=== PATIENT | female | born 1965 | race Caucasian/White ===

== ENCOUNTER → 2018-07-19 12:04 | Outpatient (CLI) | payer OTHER, SELFPAY ==
--- NOTE | 2018-07-19 12:13 | US_ITS ---
US thyroid, FNA thyroid w ultrasound guidance, US organ site (thyroid) Ordering Physician: Soumya Duffy Patient Age: 53 years: Female HISTORY: ITS.REASON: Left thyroid NODULE Long-standing isthmus nodule towards left.. Patient been off aspirin for one week TECHNIQUE: Initial ultrasound of thyroid performed. Subsequent ultrasound-guided thyroid nodule fine needle aspiration x4 performed by Dr. Bray FINDINGS AND PROCEDURE: ULTRASOUND thyroid Nodule is identified left isthmus of thyroid . It measures up to 1.8 x 1.15 cm maximum dimension. Hypervascular nodule Otherwise thyroid gland only briefly surveyed .These images also determined the best approach for access to perform aspiration biopsy of this nodule. Scanning by Dr. Bray ULTRASOUND-GUIDED FNA BIOPSY thyroid patient received Xanax 1 mg and Lortab5 Prior to the procedure for comfort and mild sedation. Following sterile preparation as well as local skin, and minimal deeper placement of Xylocaine anesthetic the FNA procedure was performed.. Under ultrasound guidance the FNA biopsy needle, was advanced to the nodule and positioned. Needle tip was observed passing into the nodule on each of the 4 multipleFNA biopsies passes. Slightly different areas sampled After confirming adequate material FNA specimen material obtained and subsequently submitted to cytopathology. Patient tolerated procedure well. IMPRESSION: 1. 1.8 cm x 1.1 cm thyroid nodule left isthmus. Relatively Hypervascular appearing nodule 2. FNA thyroid biopsy performed. & Appears that Adequate material obtained with this 4 FNA passes utilized with this procedure 3. CYTOPATHOLOGY REPORT.: Atypical Follicular lesion of undetermined significance
== END ==
PROVIDERS: Family Provider Family Medicine; PCP Family Medicine; Visit Provider Family Medicine
DX: E04.1 Nontoxic single thyroid nodule (principal)
CPT/HCPCS: 10022; 76536

== ENCOUNTER → 2019-03-15 20:14 | Outpatient (CLI) | payer OTHER, SELFPAY | PROVIDERS: PCP Family Medicine; Visit Provider Specialist | DX: G47.30 Sleep apnea, unspecified (principal); R06.83 Snoring; R06.81 Apnea, not elsewhere classified; R53.83 Other fatigue; R25.2 Cramp and spasm; G43.919 Migraine, unspecified, intractable, without status migrainosus; R51 Headache | CPT/HCPCS: 95810 ==

== ENCOUNTER → 2020-12-15 18:47 | Outpatient (CLI) | payer OTHER, SELFPAY ==
[2020-12-15 19:20] LABS: Basophils # 0.1 K/mm3 (0-0.2); Basophils % 1.3 % (0.1-2.0); Eosinophils # 0.2 K/mm3 (0.0-0.4); Eosinophils % 2.1 % (0.1-12.0); Hemoglobin 14.9 g/dL (12.2-16.2); Lymphocytes # 1.9 K/mm3 (0.7-4.5); Lymphocytes % 23.3 % (10-50); Mean Corpuscular Hemoglobin 31.2 pg (27.0-31.2); Mean Corpuscular Volume 91.7 fl (81-99); Mean Platelet Volume 10.8 fl (7.4-10.4); Monocytes # 0.3 K/mm3 (0.1-1.0); Monocytes % 3.3 % (1.7-9.3); Neutrophils # 5.8 K/mm3 (1.8-7.8); Neutrophils % 69.9 % (37.0-80.0); Platelet Count 319 K/mm3 (142-424); Red Blood Count 4.79 M/mm3 (4.20-5.40); Red Cell Distribution Width 13.6 % (11.5-17.5); White Blood Count 8.2 K/mm3 (4.8-10.8)
[2020-12-15 19:42] LABS: Alanine Aminotransferase 23 U/L (12-78); Albumin Level 4.8 g/dl (3.5-5.0); Albumin/Globulin Ratio 1.6 (1.1-1.8); Alkaline Phosphatase 64 U/L (38-126); Anion Gap 14.1 mEq/L (5-15); Aspartate Amino Transferase 32 U/L (14-36); Bilirubin,Total 0.9 mg/dl (0.2-1.3); Blood Urea Nitrogen 15 mg/dl (7-17); Calcium 10.4 mg/dl (8.4-10.2); Carbon Dioxide 31 mmol/L (22.0-30.0); Chloride 101 mmol/L (98-107); Chol/HDL Ratio 3.3 (1-3.5); Cholesterol 189 mg/dl (140-200); Estimated Glomerular Filt Rate 51 ml/min (>60); GFR (African American) 62 ML/MIN (>60); Glucose 91 mg/dl (74-100); HDL Cholesterol 58 mg/dl (40-60); Potassium 4.1 mmoL/L (3.5-5.1); Sodium 142 mmol/L (136-145); Total Protein,Serum 7.8 g/dl (6.3-8.2); Triglycerides 136 mg/dl (30-150); VLDL Cholesterol 27 mg/dL (0-40)
[2020-12-15 19:53] LABS: Direct LDL Cholesterol 95.31 mg/dL (100-129)
[2020-12-15 19:59] LABS: 25-OH Vitamin D, Total 38.4 ng/mL (30-100)
[2020-12-15 20:01] LABS: T4 (Thyroxine) 11.9 ug/dl (5.53-11.0)
[2020-12-15 20:13] LABS: Thyroid Stimulating Hormone 0.77 uIU/mL (0.465-4.68)
== END ==
PROVIDERS: Visit Provider Emergency Medicine
DX: R53.83 Other fatigue (principal); E05.90 Thyrotoxicosis, unspecified without thyrotoxic crisis or storm
CPT/HCPCS: 80053; 80061; 82306; 84436; 84443; 85025

== ENCOUNTER 2021-01-22 22:38 | Emergency (ER) | payer OTHER, SELFPAY ==
[2021-01-22 22:39] VITALS: BP 169/69; PULSE 73; RESP 16; TEMP 37.1; O2SAT 100; BMI 31.9
[2021-01-22 23:04] VITALS: BMI 31.9
[2021-01-22 23:20] LABS: Potassium 3.6 mmoL/L (3.5-5.1); Sodium 142 mmol/L (136-145)
[2021-01-22 23:21] LABS: Basophils # 0.2 K/mm3 (0-0.2); Basophils % 1.9 % (0.1-2.0); Eosinophils # 0.4 K/mm3 (0.0-0.4); Eosinophils % 5.5 % (0.1-12.0); Hemoglobin 13.4 g/dL (12.2-16.2); Lymphocytes # 2.6 K/mm3 (0.7-4.5); Lymphocytes % 33.8 % (10-50); Mean Corpuscular HGB Conc 31.3 g/dL (31.8-35.4); Mean Corpuscular Hemoglobin 29.8 pg (27.0-31.2); Mean Corpuscular Volume 95.4 fl (81-99); Mean Platelet Volume 9.4 fl (7.4-10.4); Monocytes # 0.4 K/mm3 (0.1-1.0); Monocytes % 5.1 % (1.7-9.3); Neutrophils # 4.2 K/mm3 (1.8-7.8); Neutrophils % 53.8 % (37.0-80.0); Platelet Count 274 K/mm3 (142-424); Red Cell Distribution Width 13.5 % (11.5-17.5); White Blood Count 7.8 K/mm3 (4.8-10.8)
[2021-01-22 23:22] LABS: Blood Urea Nitrogen 18 mg/dl (7-17); Creatinine Clearance Estimated 69 mL/min (50-200); Estimated Glomerular Filt Rate 46 ml/min (>60); GFR (African American) 56 ML/MIN (>60)
[2021-01-22 23:23] LABS: Alanine Aminotransferase 29 U/L (12-78); Albumin Level 4.6 g/dl (3.5-5.0); Alkaline Phosphatase 59 U/L (38-126); Aspartate Amino Transferase 44 U/L (14-36); Bilirubin,Direct 0.1 mg/dl (0.0-0.4); Bilirubin,Indirect 0.8 mg/dL (0.0-0.9); Bilirubin,Total 0.9 mg/dl (0.2-1.3); Bilirubin,Unconjugated 0.8 mg/dL (0.0-1.1); Calcium 9.8 mg/dl (8.4-10.2); Carbon Dioxide 32 mmol/L (22.0-30.0); Glucose 111 mg/dl (74-100); Total Protein,Serum 7.9 g/dl (6.3-8.2)
[2021-01-22 23:27] LABS: Anion Gap 8.6 mEq/L (5-15); Chloride 105 mmol/L (98-107)
--- NOTE | 2021-01-22 23:36 | HMH.EDHA ---
ED Disposition Clinical Impression: Migraine Qualifiers: Migraine type: unspecified Status migrainosus presence: without status migrainosus Intractability: not intractable Qualified Code(s): G43.909 - Migraine, unspecified, not intractable, without status migrainosus Disposition: Home, Self-Care Condition on Discharge: Good Instructions: DI for Migraine Additional Instructions: call neuro for follow up and rechekc if needed Referrals: Will Vicente MD [Primary Care Provider] - - Critical Care Critical Care Time: No Attestation: On 01/22/21, the high probability of a clinically significant, sudden or life threatening deterioration of the following system(s) required my full and direct attention, intervention and personal management. The time I documented below is in addition to time spent performing reported procedures but includes the following listed in this critical care notation. Medical Decision Making - Medical Records Medical records reviewed: Yes: I reviewed the patient's medical records. - Richard Inquiry Pt receiving controlled substance: No Vital Signs: 01/22/21 22:39 Temperature 98.7 F Temperature Source Oral Pulse Rate [Right Radial] 73 Respiratory Rate 16 Blood Pressure [Right Arm] 169/69 H Blood Pressure Mean [Right Arm] 102 Blood Pressure Source [Right Arm] Automatic Cuff Blood Pressure Position [Right Arm] Supine 02 Sat by Pulse Oximetry 100 Oxygen Delivery Method Room Air - Lab Data Lab results reviewed: Yes: I reviewed the patient's lab results. Lab Results 01/22/21 22:54: WBC 7.8, RBC 4.50, Hgb 13.4, Hct 43.0, MCV 95.4, MCH 29.8, MCHC 31.3 L, RDW 13.5, Plt Count 274, MPV 9.4, Neut % (Auto) 53.8, Lymph % (Auto) 33.8, [place] % (Auto) 5.1, Eos % (Auto) 5.5, Baso % (Auto) 1.9, Neut # (Auto) 4.2, Lymph # (Auto) 2.6, [place] # (Auto) 0.4, Eos # (Auto) 0.4, Baso # (Auto) 0.2 01/22/21 22:54: Sodium 142, Potassium 3.6, Chloride 105, Carbon Dioxide 32 H, Anion Gap 8.6, BUN 18 H, Creatinine 1.20 H, Estimated Creat Clear 69, Estimated GFR 46 L, Est GFR ( Amer) 56 L, Glucose 111 H, Calcium 9.8, Total Bilirubin 0.9, Direct Bilirubin 0.1, Conjugated Bilirubin 0.0, Indirect Bilirubin 0.8, Unconjugated Bilirubin 0.8, AST 44 H, ALT 29, Alkaline Phosphatase 59, Total Protein 7.9, Albumin 4.6 Result diagrams: 01/22/21 22:54 01/22/21 22:54 Orders (Tests/Meds): ED MEDICATIONS Generic Name Dose Route Start Last Admin Trade Name Freq PRN Reason Stop Dose Admin Sodium Chloride 1,000 mls @ 999 mls/hr 01/22/21 23:15 01/22/21 23:14 Sod Chlor 0.9% 1000ml Bag IV 01/23/21 00:15 999 mls/hr .Q1H1M NING Administration Discontinued Medications Generic Name Dose Route Start Last Admin Trade Name Freq PRN Reason Stop Dose Admin Diphenhydramine HCl 25 mg 01/22/21 23:06 01/22/21 23:13 Diphenhydramine 50mg/Ml Vial IV 01/22/21 23:07 25 mg ONCE ONE Administration Ketorolac Tromethamine 30 mg 01/22/21 23:06 01/22/21 23:13 Ketorolac 30mg/Ml Vial IV 01/22/21 23:07 30 mg ONCE ONE Administration Methylprednisolone Sodium Succinate 125 mg 01/22/21 23:06 01/22/21 23:13 Methylprednisolone Sod Succ 125mg Vial IV 01/22/21 23:07 125 mg ONCE ONE Administration Prochlorperazine Edisylate 10 mg 01/22/21 23:06 01/22/21 23:13 Prochlorperazine 10mg/2ml Vial IV 01/22/21 23:07 10 mg ONCE ONE Administration ORDERS Category Date Time Status CT angio head Stat Cat Scan 01/22/21 23:[address] angio neck Stat Cat Scan 01/22/21 23:[address] head/brain wo con Stat Cat Scan 01/22/21 23:05 Ordered Basic Metabolic Panel Stat Lab 01/22/21 22:54 Results Liver Panel Stat Lab 01/22/21 22:54 Results T4 (Thyroxine) Stat Lab 01/22/21 22:54 Results TSH [Thyroid Stimulating Hormone] Stat Lab 01/22/21 22:54 Results - Reevaluation(s) Time: 23:40 Reevaluation #1: improved Medical Decision Narrative: prob complex migraine and declined cta h
--- NOTE | 2021-01-22 23:36 | PC.NURSE ---
Pt requesting to go home at this time. She refuses ct scans and states she's feeling better and I just want to go home . aware.
[2021-01-22 23:41] LABS: T4 (Thyroxine) 10.4 ug/dl (5.53-11.0)
[2021-01-22 23:49] VITALS: BP 130/67; PULSE 61; RESP 16; TEMP 36.7; O2SAT 98
[2021-01-22 23:51] VITALS: BP 130/67; PULSE 61; RESP 16; TEMP 36.7; O2SAT 98
[2021-01-22 23:54] LABS: Thyroid Stimulating Hormone 1.02 uIU/mL (0.465-4.68)
== END 2021-01-22 23:52 | disposition home or self-care (01) ==
PROVIDERS: Emergency Provider Emergency Medicine; PCP Emergency Medicine
DX: G43.909 Migraine, unspecified, not intractable, without status migrainosus (principal); E78.5 Hyperlipidemia, unspecified; I10 Essential (primary) hypertension; M79.7 Fibromyalgia; F33.1 Major depressive disorder, recurrent, moderate; Z79.899 Other long term (current) drug therapy; Z87.891 Personal history of nicotine dependence
CPT/HCPCS: 80048; 80076; 84436; 84443; 85025; 96365; 96375; 99282

== ENCOUNTER → 2021-10-13 10:43 | Outpatient (POV) | payer OTHER, SELFPAY ==
[2021-10-13 11:25] VITALS: BP 149/88; PULSE 80; RESP 18; O2SAT 97; BMI 31.2
--- NOTE | 2021-10-13 11:59 | HMH.PMCON ---
Assessment and Plan (1) Low back pain Status: Chronic Category: Medical Code(s): M54.50 - Low back pain, unspecified (2) Lumbar radiculopathy Status: Chronic Category: Medical Code(s): M54.16 - Radiculopathy, lumbar region - Assessment and plan all Dx Assessment and Plan for all problems:: Patient was referred to us by Dr. Vicente for worsening low back pain with radicular symptoms into bilateral buttock, hips, and legs. Patient was seen in a pain management clinic in [facility], but is unsure of the name of the clinic or the physician that treated her at that time. She does report to have had injective therapy 3 to 4 years ago. She cannot verify the type of injections that she had. We do not have records from that clinic. We will attempt to get information from the clinic that she was previously seen. Patient and I did discuss that we would be happy to perform injections for her, however, we cannot assure her that the injection will work, as she reports a change in symptoms. The patient admits that her pain has changed since her injections from her last MRI and from her last injective therapy from the clinic in [place]. We discussed ordering imaging of her lumbar spine to determine pathology. The patient was in agreement upon leaving the clinic. Following the patient leaving the clinic, we were contacted by her who is a radiologist here at [facility] inquiring why an injection was not ordered for the patient, as well as who he needed to discuss injective therapy with today. Again, the patient and I did discuss possible options of injective therapy, however, due to lack of recent imaging and due to the patient reporting her symptoms to have changed since her last MRI, imaging would be the most appropriate option at this time. She is currently on oral medications prescribed by Dr. Vicente of muscle relaxants, anti-inflammatories and opiates. I have advised the patient that it would be appropriate for her to contact Dr. Swanson in regards to the imaging to determine a further plan of care once the MRI of the lumbar spine has been completed. If Dr. Swanson does feel appropriate to proceed with injective therapy without further imaging, we will be happy to get the patient scheduled upon his discretion. Otherwise, we will await the MRI and Dr. Swanson was advised for further plan of care. HPI - Data of Consult Patient: new to practice Consult date: 10/13/21 Requesting Physician: Aleida Gay APRN - Consult Narrative Reason for consult: Low back pain History of present illness: Ms. Briseno is a 56 year old female who presents today for consultation for low back pain. The patient says that the pain does radiate into bilateral buttock, bilateral hips, bilateral legs and bilateral knees. She reports the pain to be worse on the left side at this time. The patient says that she was seen in [place] pain management clinic on [facility]. She is unsure of the clinic name or the physician that treated her. She did get injections in the clinic and got significant relief. She says that approximately 6 months ago her pain began to return. The pain has progressively worsened and has been at the worst over the last month. She says injections were performed approximately 3 to 4 years ago. She is unsure of the type of injections that she has had. The patient has not had any recent imaging. She reports her pain to be worse with standing, walking, and prolonged sitting. Leaning forward does give the patient relief. She also reports to be having numbness and tingling into her bilateral lower extremities and feet. She does report a history of fibromyalgia. She is also reporting new onset difficulty with urination. She is concerned this is directly related to her pain with her back. Patient also complains of bilateral knee pain with worsening pain to the left knee with swelling intermittently. She is a to t
== END ==
PROVIDERS: Visit Provider Clinical Nurse Specialist Family Health
DX: M54.50 Low back pain, unspecified (principal); M54.16 Radiculopathy, lumbar region
CPT/HCPCS: 99202; G0463

== ENCOUNTER → 2021-10-13 12:03 | Outpatient (CLI) | payer OTHER, SELFPAY ==
--- NOTE | 2021-10-13 12:10 | MR_ITS ---
PROCEDURE: MR LUMBAR SPINE WO CON CLINICAL INDICATION: BACK PAIN COMPARISON: No exams were available for comparison TECHNIQUE: Standard multiplanar multiecho sequences are performed without contrast. 3-D MIP and myelographic images are also rendered and reviewed FINDINGS: Normal alignment. The spinal cord ends at the L1 level. T11-T12: Unremarkable. T12-L1: Unremarkable. L1-L2: Mild circumferential bulging disc with degenerative disc disease. L2-L3: Unremarkable. L3-L4: Minimal left foraminal disc protrusion causing mild left-sided foraminal narrowing with minimal impingement upon the exiting L3 nerve root. Mild facet and ligamentum hypertrophy L4-5: Mild concentric bulging disc with small broad-based central disc protrusion very slightly eccentric toward the left. Moderate facet and ligamentum hypertrophic change with mild bilateral lateral recess narrowing left greater than right with mild right and [id number] left foraminal narrowing. L5-S1: Bulging disc eccentric toward the right causing right lateral recess and moderate right-sided foraminal narrowing. There is moderate left-sided foraminal narrowing as well. Moderate to severe facet hypertrophic changes are present with a small amount fluid in the facet joints. There is mild impingement upon the exiting L5 nerve roots bilaterally from the facet facet hypertrophy and bulging disc. No extruded herniated disc or bony canal stenosis. Small amount of fluid noted in the right SI joint. No bony destructive process apparent. No fracture or dislocation. Incidental note is made of a small right renal cyst along the upper pole of the right kidney measuring 12 mm and a small right renal cyst along the posterior cortex of the right kidney at 3 mm. There is a 1.5 cm exophytic isointensity the along the uterine fundus region which may be related to a fibroid. Pelvic ultrasound may confirm. IMPRESSION: 1. L1-L2: Mild circumferential bulging disc with degenerative disc disease. 2. L3-L4: Minimal left foraminal disc protrusion causing mild left-sided foraminal narrowing with minimal impingement upon the exiting L3 nerve root. Mild facet and ligamentum hypertrophy L4-5: Mild concentric bulging disc with small broad-based central disc protrusion very slightly eccentric toward the left. Moderate facet and ligamentum hypertrophic change with mild bilateral lateral recess narrowing left greater than right with mild right and [id number] left foraminal narrowing. 3. L5-S1: Bulging disc eccentric toward the right causing right lateral recess and moderate right-sided foraminal narrowing. There is moderate left-sided foraminal narrowing as well. Moderate to severe facet hypertrophic changes are present with a small amount fluid in the facet joints. There is mild impingement upon the exiting L5 nerve roots bilaterally from the facet facet hypertrophy and bulging disc. 4. No extruded herniated disc or bony canal stenosis. 5. Small amount fluid in the right SI joint 6. Incidental note is made of a small right renal cyst along the upper pole of the right kidney measuring 12 mm and a small right renal cyst along the posterior cortex of the right kidney at 3 mm. There is a 1.5 cm exophytic isointensity the along the uterine fundus region which may be related to a fibroid. Pelvic ultrasound may confirm. Dictated by: Ke Briseno MD 10/14/2021 14:34 Ke Briseno MD in [place] 10/14/2021 14:34
== END ==
PROVIDERS: PCP Emergency Medicine; Visit Provider Clinical Nurse Specialist Family Health
DX: M54.50 Low back pain, unspecified (principal)
CPT/HCPCS: 72148; 76376

== ENCOUNTER 2021-10-16 09:10 | Day surgery (SDC) | payer OTHER, SELFPAY ==
[2021-10-16 09:36] VITALS: BP 144/90; PULSE 71; RESP 18; TEMP 36.4; O2SAT 100; BMI 31.4
[2021-10-16 10:00] VITALS: BP 125/60; PULSE 72; RESP 18; O2SAT 100
[2021-10-16 10:01] VITALS: PULSE 66; RESP 18; O2SAT 98
--- NOTE | 2021-10-16 10:09 | HMH.PMPROC ---
- Procedure Date: 10/16/21 Time: 10:10 Anesthesiologist:: Trisha Wheat MD Complications:: None Pre-procedure Diagnosis:: Degenerative disc disease of the lumbar spine with lumbar radiculopathy Post-procedure Diagnosis:: Same Indications for Procedure:: Patient is a very pleasant 56-year-old white female who presents today with chronic low back pain radiating to her legs related to the above diagnosis. She is trialed and failed conservative treatment including oral pain medications and home stretching program for greater than 6 weeks. Plan for today is for the patient to undergo lumbar epidural steroid injection under fluoroscopy at L5-S1 #1. Procedure Details:: Informed consent was obtained and the risk and benefits of the procedure was explained to the patient. The patient was taken to the procedure room. The patient was placed prone on the procedure table. The patient was prepped and draped in sterile fashion. C-arm fluoroscopy was used to view the lumbar spine. Skin and subcutaneous tissues were anesthetized using lidocaine. I placed an 18-gauge epidural needle and advanced into the L5-S1 interspace using fluoroscopic guidance and [id number] to air and saline. After confirmation of needle placement in the epidural space with dye I injected 1 mL of lidocaine 1.0% with Depo-Medrol 80 mg. Patient tolerated the procedure well with no complications. Plan and Disposition:: Follow-up with this patient in 2 weeks. Will reevaluate pain symptoms at that time.
[2021-10-16 10:24] VITALS: BP 134/60; PULSE 63; RESP 20; O2SAT 97
== END 2021-10-16 10:25 | disposition home or self-care (01) ==
LOC: SC.PAINP 09:11
PROVIDERS: PCP Emergency Medicine; Visit Provider Anesthesiology Pain Medicine
DX: M51.16 Intervertebral disc disorders with radiculopathy, lumbar region (principal); E07.9 Disorder of thyroid, unspecified; G43.909 Migraine, unspecified, not intractable, without status migrainosus; E78.5 Hyperlipidemia, unspecified; I10 Essential (primary) hypertension; F32.A Depression, unspecified; M79.7 Fibromyalgia; K21.9 Gastro-esophageal reflux disease without esophagitis; F41.9 Anxiety disorder, unspecified; Z87.891 Personal history of nicotine dependence
CPT/HCPCS: 62323; J1040; Q9966

== ENCOUNTER → 2022-04-15 14:10 | Outpatient (POV) | payer BC, SELFPAY ==
[2022-04-15 14:35] VITALS: BP 146/102; PULSE 85; RESP 18; TEMP 37.2; O2SAT 95; BMI 30.9
--- NOTE | 2022-04-15 15:42 | HMH.PAINSOAP ---
[facility] Pain Management SOAP Note Subjective:: Patient is a pleasant 57-year-old female who presents today for follow-up. We are currently treating this patient for degenerative disc disease of lumbar spine with lumbar radiculopathy symptoms, bilateral hip pain, left knee pain. We have tried a lumbar epidural steroid injection on October 16, 2021 that provided minimal relief. She is currently being managed with oral medications by Dr. Vicente. She is currently taking gabapentin 800 mg 4 times a day, [place] 5 mg 3 times a day, clonazepam 0.5 mg 3 times a day, baclofen 10 mg, Flexeril. She states that these medications are somewhat helping with her pain. She presents today with worsening low back pain that radiates to bilateral lower extremities. Denies any loss of bowel and bladder functions. Denies any recent falls or traumas. Rates her pain today as 9 out of 10. [facility] [phone] with an active morphine equivalent of 15. Review of Systems: General: No recent weight changes, no fever, no sleep disturbances Respiratory: No cough, no shortness of air, no recurring pulmonary infections Cardiovascular/peripheral vascular: No chest pain, no palpitations, no edema, no shortness of breath Gastrointestinal: No new onset incontinence, normal bowel movements reported Genitourinary: No new onset incontinence Musculoskeletal: Low back pain, bilateral hip pain, left knee pain Psychiatric: [Normal mood/affect] Neurological: [Denies weakness in extremities], [denies balance issues] Objective:: Physical Exam: General: Alert and oriented x3, no acute distress, pleasant and cooperative Lungs: Respirations even and unlabored, symmetrical chest expansion Eyes: PERRL Musculoskeletal: Flexion and extension of lumbar [spine] somewhat guarded secondary to pain, [antalgic gait noted]; bilateral SI are positive for RASHI, Jean's, [place]'s, Gaenslen's, compression, and distraction. Patient is tender to palpation around the bilateral greater trochanteric bursa Neurological: Speech clear, no gross sensory deficit Assessment:: Degenerative disc disease of lumbar spine with lumbar radiculopathy symptoms Facet arthropathy Lumbar spondylosis Sacroiliitis Greater trochanteric bursitis Plan:: Patient has been having worsening low back pain that radiates to bilateral lower extremities. She cannot tolerate any prolonged activity such as sitting, standing, and walking. She has trouble getting up from a sitting position. Bilateral SI are positive for RASHI, Jean's, [place]'s, [place]'s, compression, and distraction. Patient is also tender to palpation around the bilateral greater trochanteric bursa. I have discussed with the patient that it would be beneficial to do SI injections and greater trochanteric bursa injections. Patient agrees. She says that her left side is worse than her right side. We will schedule the patient for a left SI injection and left greater trochanteric bursa injection. Risks and benefits of the procedure have been explained to the patient. Patient would like to proceed with the procedure. Patient states that she has high anxiety and is taking clonazepam 0.5 mg 3 times a day as prescribed by Dr. Vicente. I have discussed with the patient that I can start her on Vistaril 50 mg. Patient is to take 1 tablet at night before the procedure and 1 tablet in the morning of the procedure. Patient is also complaining of left knee pain. We will order a bilateral weighted x-ray of her left knees. We will schedule the patient for a left intra-articular knee injection 1 week after her SI injections. Patient has been instructed to contact the clinic with any concerns before the next appointment. Dr. Swanson has reviewed this note and agrees with this plan of care. This note was dictated using voice recognition software and make contain errors or omissions. [facility] History Medical History: Reports:: Depression, Hyperlipidemia, Hypertension, Migraine Keren
== END ==
PROVIDERS: Visit Provider Student in an Organized Health Care Education/Training Program
DX: M51.16 Intervertebral disc disorders with radiculopathy, lumbar region (principal); M47.896 Other spondylosis, lumbar region; M54.06 Panniculitis affecting regions of neck and back, lumbar region; M46.1 Sacroiliitis, not elsewhere classified; M70.60 Trochanteric bursitis, unspecified hip
CPT/HCPCS: 99212; G0463

== ENCOUNTER 2022-04-30 13:08 | Day surgery (SDC) | payer BC, SELFPAY ==
[2022-04-30 13:26] VITALS: BP 131/78; PULSE 81; RESP 20; TEMP 36.6; O2SAT 98; BMI 31.7
[2022-04-30 13:33] VITALS: BP 124/71; PULSE 78; RESP 18; O2SAT 98
[2022-04-30 13:34] VITALS: BP 112/74; PULSE 76; RESP 18; O2SAT 98
--- NOTE | 2022-04-30 13:43 | P.PCN_ITS ---
- Procedure Date: 04/30/22 Time: 13:43 Anesthesiologist:: Fransisco Swanson MD Complications:: None Pre-procedure Diagnosis:: Sacroiliitis and trochanteric bursitis Post-procedure Diagnosis:: Same Indications for Procedure:: Patient is a pleasant 57-year-old white female who we are treating for bilateral hip pain over the SI joints and trochanteric bursa. She is tender over both SI joints. She does have positive Janette's test bilaterally. She is positive Mccormick's test bilaterally. She is positive SI joint compression test bilaterally. She is also tender over both enteric bursa's. Left side is worse than right. Today we will do a left trochanteric bursa injection and left SI joint injection to help with her pain symptoms. Procedure Details:: Left SI joint injection under fluoroscopy Informed consent was obtained and the risks and benefits of the procedure was explained to the patient. Patient was taken to the procedure room. Patient was placed prone on the procedure table. The left hip was prepped using ChloraPrep. The skin and subcutaneous tissues were anesthetized using lidocaine. I placed a 22-gauge spinal needle into the inferior aspect of the left SI joint. Needle placement was confirmed with dye. After this we injected 5 mL bupivacaine 0.25% and Depo-Medrol 40 mg into the left SI joint. The patient tolerated the procedure well with no complication. Trochanteric bursa injection under fluoroscopy informed consent was obtained and the risk and benefits of the procedure was explained to the patient. The patient was taken to procedure room and placed prone on the procedure table. The left hip was prepped using ChloraPrep. The skin and subcutaneous tissues were anesthetized using lidocaine. I placed a 22- gauge spinal needle under fluoroscopic guidance and advanced until it contacted the left greater trochanter. Needle placement was confirmed with dye. After this we injected 5 mL bupivacaine 0.25% and Depo-Medrol 40 mg. Patient tolerated the procedure well with no complications. Plan and Disposition:: We will follow-up with her in 1 week. We will reevaluate her symptoms at that time and plan on a right SI joint injection and right trochanteric bursa injection at that time.
--- NOTE | 2022-04-30 13:56 | XR_ITS ---
FINAL REPORT CLINICAL HISTORY: JUAN KNEE PAIN FINDINGS: LEFT KNEE: 4 views of the left knee obtained. There is no acute fracture or dislocation. There is moderate to severe degenerative change of the medial compartment with medial compartment narrowing. There is moderate patellofemoral and lateral compartment degenerative change. There is no significant joint effusion. IMPRESSION: Degenerative changes with no acute bony abnormality. Reviewed, Interpreted and Dictated by Richard Baker III, MD Transcribed by Aleida Henriquez Authenticated and [facility]
--- NOTE | 2022-04-30 13:56 | XR_ITS ---
FINAL REPORT CLINICAL HISTORY: JUAN KNEE PAIN FINDINGS: RIGHT KNEE: 4 views of the right knee obtained. There is no acute fracture or dislocation. There is moderate to severe degenerative change of the medial compartment with medial compartment narrowing. There is moderate patellofemoral and lateral compartment degenerative change. There is a small joint effusion. IMPRESSION: Degenerative changes with no acute fracture. Reviewed, Interpreted and Dictated by Richard Baker III, MD Transcribed by Aleida Henriquez Authenticated and [facility]
[2022-04-30 13:59] VITALS: BP 111/71; PULSE 75; RESP 20; O2SAT 98
== END 2022-04-30 14:00 | disposition home or self-care (01) ==
PROVIDERS: PCP Emergency Medicine; Visit Provider Anesthesiology
DX: M46.1 Sacroiliitis, not elsewhere classified (principal); M70.62 Trochanteric bursitis, left hip; F32.A Depression, unspecified; E78.5 Hyperlipidemia, unspecified; I10 Essential (primary) hypertension; G43.909 Migraine, unspecified, not intractable, without status migrainosus; M19.90 Unspecified osteoarthritis, unspecified site
CPT/HCPCS: 20610; 27096; 73564; 77002; G0260; J1030; Q9966

== ENCOUNTER 2022-05-07 11:39 | Day surgery (SDC) | payer BC, SELFPAY ==
[2022-05-07 11:59] VITALS: BP 136/83; PULSE 81; RESP 20; TEMP 36.6; O2SAT 98; BMI 31.9
--- NOTE | 2022-05-07 12:38 | P.PCN_ITS ---
- Procedure Date: 05/07/22 Time: 12:38 Anesthesiologist:: Sean Lai CRNA Complications:: None Pre-procedure Diagnosis:: Right sacroiliitis. Right trochanteric bursitis. Post-procedure Diagnosis:: Same Indications for Procedure:: Very pleasant 57-year-old female that comes to our clinic today for right SI joint injection as well as right trochanteric bursa injection. Patient has extreme point tenderness over each area. She rates the pain 9/10. Procedure Details:: Procedure: Right sacroliliac joint injection under fluoroscopy Informed consent was obtained and the risk and benefits of the procedure were explained to the patient.~ The patient was taken to the procedure room and noninvasive monitors were placed including noninvasive blood pressure cuff and pulse oximeter.~ The patient was placed prone on the procedure table.~ The~ right hip was cleansed using Betadine as a cleansing solution.~ C-arm fluorosocpy was used to view the right SI joint.~ The skin and subcutaneous tissues were anesthetized using Lidocaine 1.5% and a 25-gauge needle.~ After this, a 22-gauge spinal needle was inserted under fluoroscopic guidance into the inferior aspect of the right SI joint.~ Omnipaque dye was injected and a good spread was seen throughout the joint.~ After this, approximately 5 mL of bupivacaine 0.25% and Depo-Medrol 40 mg was incrementally injected into the sacroiliac joint.~ The patient tolerated the procedure well with no complications.~ The patient was observed in the Pain Clinic, then discharged home neurologically intact.~ Procedure: Right trochanteric bursa injection under fluoroscopy We then moved to the right trochanteric bursa.~ C-arm fluoroscopy was used to view the left greater trochanter.~ The skin and subcutaneous tissues overlying the right greater trochanter were anesthetized using lidocaine, 1.5% and a 25- gauge needle.~ After this, a 22-gauge spinal needle was inserted and advanced until it contacted the right greater trochanter.~ Dye was injected and good spread was seen throughout the right trochanteric bursa. After this, approximately 5 mL of bupivacaine, 0.25% and Depo-Medrol, 40 mg was incrementally injected into the right right trochanteric bursa.~ The patient tolerated the procedure well with no complications. Plan and Disposition:: Patient was discharged without incident.
[2022-05-07 12:39] VITALS: BP 161/77; PULSE 76; RESP 18; O2SAT 97
[2022-05-07 12:40] VITALS: BP 161/77; PULSE 82; RESP 18; O2SAT 97
[2022-05-07 12:56] VITALS: BP 117/78; PULSE 64; RESP 20; O2SAT 95
== END 2022-05-07 12:56 | disposition home or self-care (01) ==
PROVIDERS: PCP Emergency Medicine; Visit Provider Nurse Anesthetist, Certified Registered
DX: M46.1 Sacroiliitis, not elsewhere classified (principal); M70.61 Trochanteric bursitis, right hip
CPT/HCPCS: 20610; 27096; 77002; G0260; J1040

== ENCOUNTER 2022-05-14 09:10 | Day surgery (SDC) | payer BC, SELFPAY ==
[2022-05-14 09:23] VITALS: BP 115/77; PULSE 70; RESP 18; TEMP 36.8; O2SAT 98; BMI 31.9
--- NOTE | 2022-05-14 09:46 | HMH.PMPROC ---
- Procedure Date: 05/14/22 Time: 09:46 Anesthesiologist:: Sean Lai CRNA Complications:: None Pre-procedure Diagnosis:: Osteoarthritis left knee Post-procedure Diagnosis:: Same Indications for Procedure:: Patient is a pleasant 57-year-old female who comes our clinic today for left intra-articular knee injection of cortisone and local anesthetic. She complains of pain in the medial border of the left knee. She describes the knee pain as feeling tight at times. She rates her pain 7/10 in the knee. Pain increases significantly when walking for any distance. Procedure Details:: Procedure Details: Left intra-articular knee injection Informed consent was obtained risk and benefits of the procedure were explained to the patient. Patient was taken the procedure room both knees were prepped using ChloraPrep. A 25-gauge needle was used to inject 10 mL bupivacaine 0.25% and Depo-Medrol 40 mg into left knee. We did a total of 40 mg Depo-Medrol. The patient tolerated the procedure well with no complications. Plan and Disposition:: We will follow-up with in 2 weeks. Will reevaluate symptoms at that time. Plan and Disposition:: Patient was discharged without incident.
[2022-05-14 09:47] VITALS: BP 147/99; PULSE 76; RESP 20
[2022-05-14 09:57] VITALS: BP 124/79; PULSE 77; RESP 20; O2SAT 98
== END 2022-05-14 09:58 | disposition home or self-care (01) ==
LOC: SC.PAINP 09:12
PROVIDERS: PCP Emergency Medicine; Visit Provider Nurse Anesthetist, Certified Registered
DX: M17.12 Unilateral primary osteoarthritis, left knee (principal); M51.16 Intervertebral disc disorders with radiculopathy, lumbar region; M47.26 Other spondylosis with radiculopathy, lumbar region; M46.1 Sacroiliitis, not elsewhere classified
CPT/HCPCS: 20610; J1040

== ENCOUNTER → 2022-11-08 21:28 | Outpatient (CLI) | payer BC, SELFPAY ==
[2022-11-08 18:51] LABS: Benzodiazepines Screen,Urine Negative ng/ml (<200)
[2022-11-08 18:52] LABS: Amphetamine/Metha Screen,Urine Negative ng/ml (<1000); Barbiturates Screen,Urine Negative ng/ml (<200)
[2022-11-08 18:53] LABS: Cannabinoid Screen,Urine Positive ng/ml (<50)
[2022-11-08 18:54] LABS: Cocaine Screen,Urine Negative ng/ml (<300); Methadone Screen,Urine Negative ng/ml (<300)
[2022-11-08 18:55] LABS: Opiate Screen,Urine Positive ng/ml (<300)
[2022-11-08 18:56] LABS: Phencyclidine Screen,Urine Negative ng/ml (<25)
== END ==
PROVIDERS: Visit Provider Emergency Medicine
DX: Z79.899 Other long term (current) drug therapy (principal)
CPT/HCPCS: 80305

== ENCOUNTER → 2023-04-15 13:30 | Outpatient (CLI) | payer BC, SELFPAY ==
[2023-04-15 18:05] LABS: Alanine Aminotransferase 34 U/L (12-78); Albumin Level 4.6 g/dl (3.5-5.0); Albumin/Globulin Ratio 1.8 (1.1-1.8); Alkaline Phosphatase 63 U/L (38-126); Anion Gap 18.8 mEq/L (5-15); Aspartate Amino Transferase 37 U/L (14-36); Bilirubin,Total 1.1 mg/dl (0.2-1.3); Blood Urea Nitrogen 19 mg/dl (7-17); Calcium 9.6 mg/dl (8.4-10.2); Carbon Dioxide 26 mmol/L (22.0-30.0); Chloride 96 mmol/L (98-107); Chol/HDL Ratio 2.4 (1-3.5); Cholesterol 179 mg/dl (140-200); Estimated Glomerular Filt Rate 38 ml/min (>60); GFR (African American) 46 ML/MIN (>60); Globulin 2.5 g/dL (1.3-3.2); Glucose 83 mg/dl (74-100); HDL Cholesterol 74 mg/dl (40-60); Potassium 3.8 mmoL/L (3.5-5.1); Sodium 137 mmol/L (136-145); Total Protein,Serum 7.1 g/dl (6.3-8.2); Triglycerides 147 mg/dl (30-150); VLDL Cholesterol 29 mg/dL (0-40)
[2023-04-15 18:09] LABS: Basophils # 0.1 K/mm3 (0-0.2); Basophils % 1.1 % (0.1-2.0); Eosinophils # 0.3 K/mm3 (0.0-0.4); Eosinophils % 3.3 % (0.1-12.0); Hematocrit 43.9 % (37.0-47.0); Hemoglobin 14.5 g/dL (12.2-16.2); Lymphocytes # 2.3 K/mm3 (0.7-4.5); Lymphocytes % 25.5 % (10-50); Mean Corpuscular HGB Conc 33.1 g/dL (31.8-35.4); Mean Corpuscular Volume 93.5 fl (81-99); Mean Platelet Volume 11.4 fl (7.4-10.4); Monocytes # 0.5 K/mm3 (0.1-1.0); Monocytes % 5.6 % (1.7-9.3); Neutrophils # 5.9 K/mm3 (1.8-7.8); Neutrophils % 64.5 % (37.0-80.0); Platelet Count 313 K/mm3 (142-424); Red Blood Count 4.69 M/mm3 (4.20-5.40); Red Cell Distribution Width 12.9 % (11.5-17.5); White Blood Count 9.2 K/mm3 (4.8-10.8)
[2023-04-15 18:21] LABS: Free T4 (Free Thyroxine) 1.55 ng/dl (0.78-2.19)
[2023-04-15 18:35] LABS: Amphetamine/Metha Screen,Urine Negative ng/ml (<1000)
[2023-04-15 18:36] LABS: Barbiturates Screen,Urine Negative ng/ml (<200); Benzodiazepines Screen,Urine Negative ng/ml (<200)
[2023-04-15 18:37] LABS: Cannabinoid Screen,Urine Positive ng/ml (<50); Cocaine Screen,Urine Negative ng/ml (<300)
[2023-04-15 18:38] LABS: Methadone Screen,Urine Negative ng/ml (<300)
[2023-04-15 18:39] LABS: Opiate Screen,Urine Positive ng/ml (<300); Phencyclidine Screen,Urine Negative ng/ml (<25)
== END ==
PROVIDERS: PCP Emergency Medicine; Visit Provider Emergency Medicine
DX: E66.9 Obesity, unspecified (principal); Z68.31 Body mass index [BMI] 31.0-31.9, adult; Z79.899 Other long term (current) drug therapy
CPT/HCPCS: 80053; 80061; 80305; 84439; 84443; 85025

== ENCOUNTER → 2023-08-09 12:00 | Outpatient (CLI) | payer BC, SELFPAY ==
[2023-08-09 19:58] LABS: Amphetamine/Metha Screen,Urine Negative ng/ml (<1000)
[2023-08-09 19:59] LABS: Barbiturates Screen,Urine Negative ng/ml (<200); Benzodiazepines Screen,Urine Negative ng/ml (<200)
[2023-08-09 20:00] LABS: Cannabinoid Screen,Urine Positive ng/ml (<50)
[2023-08-09 20:01] LABS: Cocaine Screen,Urine Negative ng/ml (<300); Methadone Screen,Urine Negative ng/ml (<300)
[2023-08-09 20:02] LABS: Opiate Screen,Urine Positive ng/ml (<300); Phencyclidine Screen,Urine Negative ng/ml (<25)
== END ==
PROVIDERS: PCP Emergency Medicine; Visit Provider Emergency Medicine
DX: Z79.899 Other long term (current) drug therapy (principal)
CPT/HCPCS: 80305

== ENCOUNTER 2024-01-11 21:53 | Outpatient (CLI) | payer BC, SELFPAY ==
[2024-01-11 19:23] LABS: Basophils % 0.5 % (0.1-2.0); Eosinophils # 0.1 K/mm3 (0.0-0.4); Eosinophils % 1.9 % (0.1-12.0); Hematocrit 37.2 % (37.0-47.0); Hemoglobin 13.2 g/dL (12.2-16.2); Lymphocytes # 2.1 K/mm3 (0.7-4.5); Mean Corpuscular HGB Conc 35.5 g/dL (31.8-35.4); Mean Corpuscular Hemoglobin 33.4 pg (27.0-31.2); Mean Corpuscular Volume 94.3 fl (81-99); Monocytes # 0.3 K/mm3 (0.1-1.0); Monocytes % 4.4 % (1.7-9.3); Neutrophils # 4.9 K/mm3 (1.8-7.8); Neutrophils % 65.3 % (37.0-80.0); Platelet Count 248 K/mm3 (142-424); Red Blood Count 3.94 M/mm3 (4.20-5.40); White Blood Count 7.4 K/mm3 (4.8-10.8)
[2024-01-11 20:16] LABS: Chloride 104 mmol/L (98-107)
[2024-01-11 20:17] LABS: Potassium 3.7 mmoL/L (3.5-5.1); Sodium 138 mmol/L (136-145)
[2024-01-11 20:19] LABS: Alanine Aminotransferase 29 U/L (12-78); Alkaline Phosphatase 65 U/L (38-126); Anion Gap 5.7 mEq/L (5-15); Aspartate Amino Transferase 32 U/L (14-36); Bilirubin,Total 0.6 mg/dl (0.2-1.3); Blood Urea Nitrogen 16 mg/dl (7-17); Carbon Dioxide 32 mmol/L (22.0-30.0); Estimated Glomerular Filt Rate 57 ml/min (>60); GFR (African American) 68 ML/MIN (>60)
[2024-01-11 20:20] LABS: Albumin/Globulin Ratio 1.6 (1.1-1.8); Calcium 9.3 mg/dl (8.4-10.2); Globulin 2.5 g/dL (1.3-3.2); Glucose 87 mg/dl (74-100); Total Protein,Serum 6.5 g/dl (6.3-8.2)
== END 2024-01-11 23:59 ==
LOC: LAB.DROPOF 21:53
PROVIDERS: PCP Internal Medicine; Visit Provider Internal Medicine
DX: R53.83 Other fatigue (principal); I10 Essential (primary) hypertension; E78.5 Hyperlipidemia, unspecified; Z79.899 Other long term (current) drug therapy
CPT/HCPCS: 80053; 85025

== ENCOUNTER 2024-08-06 10:19 | Outpatient (CLI) | payer BC, SELFPAY ==
[2024-08-06 18:46] LABS: Creatinine,Urine Random 69 mg/dL (Not Estab.)
[2024-08-06 18:48] LABS: Microalbumin/Creatinine Ratio 10.7
[2024-08-06 19:17] LABS: Hemoglobin A1C 5.4 % (4.0-6.0)
[2024-08-06 19:42] LABS: Erythrocyte Sedimentation Rate 12 mm/hr (0-30)
[2024-08-06 23:11] LABS: C-Reactive Protein 0.5 mg/L (0-4)
== END 2024-08-06 23:59 | disposition home or self-care (01) ==
LOC: LAB.DROPOF 08-07 10:20
PROVIDERS: PCP Internal Medicine; Visit Provider Internal Medicine
DX: N18.31 Chronic kidney disease, stage 3a (principal); R73.03 Prediabetes; E66.9 Obesity, unspecified
CPT/HCPCS: 82043; 82570; 83036; 85651; 86140

== ENCOUNTER 2025-04-16 15:44 | Outpatient (CLI) | payer BC, SELFPAY ==
[2025-04-16 18:44] LABS: Basophils # 0.1 K/mm3 (0-0.2); Basophils % 1.4 % (0.1-2.0); Eosinophils # 0.3 Kmm3 (0.0-0.4); Eosinophils % 3.8 % (0.1-12.0); Hematocrit 38.9 % (37.0-47.0); Hemoglobin 12.9 g/dL (12.2-16.2); Immature Granulocytes # 0.02 10^3uL; Immature Granulocytes % 0.3 %; Lymphocytes # 2.1 K/mm3 (0.7-4.5); Lymphocytes % 28.4 % (10-50); Mean Corpuscular HGB Conc 33.2 g/dL (31.8-35.4); Mean Corpuscular Hemoglobin 30.5 pg (27.0-31.2); Mean Platelet Volume 11.4 fl (7.4-10.4); Monocytes # 0.6 K/mm3 (0.1-1.0); Monocytes % 8.4 % (1.7-9.3); Neutrophils # 4.3 K/mm3 (1.8-7.8); Neutrophils % 57.7 % (37.0-80.0); Nucleated Red Blood Cells # 0 10^3/uL; Nucleated Red Blood Cells % 0 %; Platelet Count 246 K/mm3 (142-424); Red Blood Count 4.23 M/mm3 (4.20-5.40); Red Cell Distribution Width 12.5 % (11.5-17.5); Red Cell Distribution Width-SD 41.8 fL; White Blood Count 7.4 K/mm3 (4.8-10.8)
[2025-04-16 19:40] LABS: Alanine Aminotransferase 31 U/L (12-78); Albumin Level 4.4 g/dl (3.5-5.0); Alkaline Phosphatase 58 U/L (38-126); Aspartate Amino Transferase 37 U/L (14-36); Bilirubin,Total 0.9 mg/dl (0.2-1.3); Blood Urea Nitrogen 27 mg/dl (7-17); Calcium 9.4 mg/dl (8.4-10.2); Carbon Dioxide 28 mmol/L (22.0-30.0); Chloride 103 mmol/L (98-107); Chol/HDL Ratio 2.9 (1-3.5); Cholesterol 156 mg/dl (140-200); Estimated Glomerular Filt Rate 50 ml/min (>60); GFR (African American) 61 ML/MIN (>60); Globulin 2.2 g/dL (1.3-3.2); Glucose 89 mg/dl (74-100); HDL Cholesterol 54 mg/dl (40-60); Sodium 137 mmol/L (136-145); Total Protein,Serum 6.6 g/dl (6.3-8.2); Triglycerides 146 mg/dl (30-150); VLDL Cholesterol 29 mg/dL (0-40)
[2025-04-16 19:51] LABS: Direct LDL Cholesterol 71.95 mg/dL (100-129)
[2025-04-16 19:54] LABS: 25-OH Vitamin D, Total 58.4 ng/mL (30-100)
[2025-04-16 20:09] LABS: Thyroid Stimulating Hormone 1.28 uIU/mL (0.465-4.68)
[2025-04-16 20:29] LABS: Hemoglobin A1C 5.5 % (4.0-6.0)
== END 2025-04-16 23:59 | disposition home or self-care (01) ==
LOC: LAB.DROPOF 22:26
PROVIDERS: PCP Nurse Practitioner Family; Visit Provider Nurse Practitioner Family
DX: E03.9 Hypothyroidism, unspecified (principal); I10 Essential (primary) hypertension; Z68.35 Body mass index [BMI] 35.0-35.9, adult; E66.9 Obesity, unspecified; E78.5 Hyperlipidemia, unspecified; Z87.891 Personal history of nicotine dependence
CPT/HCPCS: 80053; 80061; 82306; 83036; 84443; 85025

== ENCOUNTER 2025-04-30 08:41 | Outpatient (CLI) | payer BC, SELFPAY ==
--- NOTE | 2025-04-30 09:00 | MR_ITS ---
FINAL REPORT TECHNIQUE: Multiplanar and multisequence imaging of the lumbar spine was obtained without contrast. CLINICAL HISTORY: LBP. bilateral lbp. bilateral leg pain FINDINGS: There is grade 1 anterolisthesis of L5 on S1. Vertebral body height is preserved. The spinal cord ends at the level of L1. There is normal signal intensity within the substance of the distal spinal cord. No acute bone marrow edema or pathologic marrow replacement. A right renal cyst is noted. No acute paraspinal abnormality is identified. L1-2: There is an annular disc bulge with degenerative endplate changes and facet osteoarthropathy. There is no focal disc herniation, central canal stenosis or neuroforaminal narrowing. L2-3: There is an annular disc bulge without focal disc herniation, central canal stenosis or neuroforaminal narrowing. L3-4: Annular disc bulge with degenerative endplate changes and facet osteoarthropathy. There is mild inferior bilateral neuroforaminal narrowing. L4-5: Annular disc bulge with degenerative endplate changes and facet osteoarthropathy. There is mild inferior neuroforaminal narrowing. L5-S1: Annular disc bulge with degenerative endplate changes and facet osteoarthropathy. There is moderate right and severe left neuroforaminal narrowing. IMPRESSION: Multilevel degenerative disc disease with neuroforaminal narrowing as above. Reviewed, Interpreted and Dictated by Ese Cochran MD Transcribed by Radha Ashford Authenticated and [facility]
== END 2025-04-30 23:59 | disposition home or self-care (01) ==
PROVIDERS: PCP Nurse Practitioner Family; Visit Provider Nurse Practitioner Family
DX: M99.63 Osseous and subluxation stenosis of intervertebral foramina of lumbar region (principal); M51.16 Intervertebral disc disorders with radiculopathy, lumbar region; M43.17 Spondylolisthesis, lumbosacral region; N28.1 Cyst of kidney, acquired; M99.73 Connective tissue and disc stenosis of intervertebral foramina of lumbar region; M99.74 Connective tissue and disc stenosis of intervertebral foramina of sacral region; M47.26 Other spondylosis with radiculopathy, lumbar region; M47.27 Other spondylosis with radiculopathy, lumbosacral region
CPT/HCPCS: 72148

== ENCOUNTER 2025-07-24 10:15 | Outpatient (CLI) | payer BC, SELFPAY ==
--- OUTSIDE RECORDS SUMMARY | 2025-07-24 10:18 | XMS_ITS | Clinical Summary ---
Author Organization [facility] Address [address] [place] [id number] Care Team Providers Care Va Underwriter Name Role Phone Soumya Duffy MD Primary Care Provider [phone] Social History Tobacco Use Types Packs/Day Years Used Date Smoking Tobacco: Never Assessed Abuse Screen Answer Date Recorded Unsafe at Home or Work/School Not on file Feels Threatened by Someone? Not on file 08/2023 Does Anyone Keep You from Co ntacting Others or Doint Things Outside the Home? Not on file 09/06/2023 Physical Sign of Abuse Present Not on file 1 Housing Stability Answer Date Recorded Current Living Arrangements Not on file 08/28 Potentially Unsafe Housing Conditions Not on lenard e 09/06/2023 Family and Community Support Answer Donta e Recorded Help with Day-to-Day Activities Not on file 09/06/2023 Lonely or Isolated Not on file 09/06/2023 Employment Answer Date Recorded Do you want help finding or keeping work or a quincy b? Not on file 09/06/2023 Disabilities Answer Date Recorded Concentrating, Remembering, or Making Decisions Difficulty Not on file 09/06/2023 Doing Errands Independently Difficulty Not on fi le 09/06/2023 Education Answer Date Recorded Help with school or training? Not on file Preferred Language Not on file 09/06/2023 Comments Unknown Sex and Gender Information Value Date Recorded Sex Assigned at Not on file Legal Sex Female 1:40 PM EDT Gender Identity Not on file Sexual Orientation Not on file Plan of Treatment Health Maintenance Due Date Last Done Comments ANNUAL PHYSICAL 1965 Annual Gynecologic Pelvic and Breast Exam 1965 HEPATITIS C SCREENING 1963 TDAP/TD VACCINES (1 - Tdap) 1982 MAMMOGRAM 2003 COLOGUARD 2008 COLON CANCER SCREENING 5 YEAR SIGMOIDOSCOPY 2008 COLONOSCOPY [address] CANCER SCREENING 2008 CT COLONOGRAPHY 2008 FECAL OCCULT BLOOD TEST 2008 FIT Testing (1 year) 2008 Pneumococcal Vaccine 50+ (1 of 1 - PCV) 2013 ZOSTER VACCINE (1 of 2) 2013 COVID-19 Vaccine (1 - 2023- season) 2024 INFLUENZA VACCINE 08/28/2025 Insurance Member Subscriber Plan / Payer (Ef fective 2016-Present) Name:Cammie Gould Relation to Subscriber:Spouse Name:KE GOULD Date of :1961 Address: [address] [address] Payer ID:[id number] (NAIC) Group ID:[id number] Type:PARTICIPATING PROVIDER Address: [facility] [id number] [place] [id number] Care Teams Va Underwriter Relationship Specialty Start Date End Date Soumya Duffy MD [address] [place] [address] PCP - General Family Medicine 04/19/17
--- OUTSIDE RECORDS SUMMARY | 2025-07-24 10:18 | XMS_ITS | Clinical Summary ---
Author Organization Healthcare Address [address] [place] [address] Care Team Providers Care Toy Consultant Name Role Phone Will Vicente MD Primary Care Provider [phone] Allergies No known active allergies Family History Medical History Relation Name Comments Breast cancer Mother Diabetes Mother Hyperlipidemia Mother Hypertension Mother Thyroid cancer Mother Stroke Mother's Sister Relation Name Status Comments Mother Mother's Sister Social History Tobacco Use Types Packs/Day Years Used Date Smoking Tobacco: Every Day Cigarettes 1 1 Smokeless Tobacco: Never Tobacco Cessation:Ready to Q uit: Not Asked; Counseling Given: Not Answered Alcohol Use Standard Drinks/Week Comments Yes 0 (1 standard drink = 0.6 oz pure alcohol) Alcoholic Drinks/day: Occasional alcohol use Comments No Sex and Gender Information Value Date Recorded Sex Assigned at Not on file Legal Sex Female 7:29 PM EDT Gender Identity Not on file Sexual Orientation Not on file Last Filed Vital Signs Vital Sign Reading Time Taken Comments Blood Pressure 150/80 09/05/2021 4:19 AM EDT Pulse 75 09/05/2021 4:19 AM EDT Temperature 36.3 C (97.3 F) 09/04/2021 11:23 PM EDT Respiratory Rate 15 09/05/2021 4:19 AM EDT Oxygen Saturation 99% 09/05/2021 4:19 AM EDT Inhaled Oxygen Concentration - - Weight 83.5 kg (184 lb) 10/14/2023 4:18 PM EST Height 162.6 cm (5' 4 ) 10/14/2023 4:18 PM EST Body Mass Index 31.58 10/14/2023 4:18 PM EST Plan of Treatment Health Maintenance Due Date Last Done Comments [facility]-Depression Screening 1965 [facility]-HIV Screening 1965 [facility]-Hepatitis C Screening 1963 [facility]-Infant/Child/Adol SDOH Screenings 1963 [facility]-Obesity Intervention 1969 [facility]- SDOH Screenings 1981 [facility]-Adult SDOH Screenings 1981 [facility]-DTaP,Tdap,and Td Vaccines (1 - Tdap) 1982 CT Colonography 2008 Colonoscopy 2008 FIT-DNA 2008 FIT 2008 FOBT 2008 Sigmoidoscopy 2008 [facility]-Colorectal Cancer Screening 2008 [facility]-Zoster Vaccines (1 of 2) 2013 [facility]-Pap Smear 09/13/2021 09/13/2018, 07/30, 05/03/2012 [facility]-Pneumococcal Vaccine: 50+ Years (2 of 2 - PCV) 12/15/2021 12/15/2020 [facility]-Cervical Cancer Screening 09/13/2023 [facility]-HPV/Cotest 09/13/2023 09/13/2018, 07/30, 05/03/2012 VEP-ENROJ-14 Vaccine ( season) 2024 10/02/2021, 01/05/2021, 12/05/2020 [facility]-Influenza Vaccine (#1) 07/29/202512/15, 09/06/2019, 08/29/2018, Additional history exists [facility]-Breast Cancer Screening 10/14/2025 10/14/2023 [facility]-RSV Vaccine: 60+ Years or (1 - 1-dose 75+ series) 2038 HPV Vaccines Aged Out No longer eligi ble based on patient's age to complete this topic [facility]-HIB Vaccines Aged Out No longer e ligible based on patient's age to complete this topic [facility]-Hepatitis A Vaccines Aged Out No longer eligible based on patient's age to complete this topic [facility]-IPV Vaccines Aged Out No longer e ligible based on patient's age to complete this topic [facility]-Rotavirus Vaccines Aged Out No lo nger eligible based on patient's age to complete this topic Procedures Procedure Name Priority Date/Time Associated Diagnosis Comments MAMMOGRAPHY BREAST SCREENING TOMOSYNTHESIS BILATERAL Routine 10/14/2023 4:38 PM EST Visit for screening mammogram CYTO DATA CONVERSION Routine 09/13/2018 12:00 AM EDT from Last 3 Months or Most Recently Relevant to Health Maintenance Results * (ABNORMAL) Mammography Breast Screening Tomosynthesis Bilateral (10/14/2023 4:38 PM EST) Anatomical Region Laterality Modality Breast Bilateral Mammography Impressions 10/28/2023 11:25 AM EST Findings indicate additional imaging studies of the right breast are required for a complete evaluation. BI-RADS CATEGORY: Overall: 0 - Incomplete: Needs Additional Imaging Evaluation RECOMMENDATION: - Additional Imaging Diagnostic Mammogram with Possible Ultrasound. Patient Lifetime Risk Score of Breast Malignancy: 12.1 % This risk assessment is calculated using the Francesca Risk Assessment model which may underestimate the lifetime risk of breast malignancy. COMMUNICATION: Computer-aided detection (CAD) and tomosynthesis were utilized by the radiologist in the interpretation of this examination. The results and recommendations will be sent to the patient in a printed lay language version of the imaging report. Narrative 10/28/2023 11:25 AM EST EXAM: Mammography Breast Screening with Tomosynthesis REASON FOR EXAM: Screening Mammogram HISTORY: Patient is 58 y.o. Family medical history includes breast cancer in mother. Surgical and procedural history include breast surgery (Breast Surgery from [facility]) and breast enhancement/implants. COMPARISON STUDIES: Compared to: 11/24/2015 US Breast Imaging Outside Images Upload at [facility] 11/24/2015 US Breast Imaging Outside Images Upload at [facility] 11/24/2015 Mammography Outside Images Upload at [facility] 03/23/2016 Mammography Outside Images Upload at [facility] BREAST COMPOSITION: The breasts are heterogeneously dense, which may obscure small masses. FINDINGS: RIGHT: Finding 1, possible mass, 5mm in the lower inner quadrant with a middle depth 5 cm from the nipple. Referenced Jorje slice(s) CC#18 and MLO#14. RIGHT: Finding 2, possible asymmetry, 37mm in the superior region of the breast with a middle depth 5 cm from the nipple. Referenced Jorje slice(s) MLO#14. LEFT: No suspicious masses, microcalcifications or areas of architectural distortion are seen. Stable bilateral implants and left breast mass with a biopsy clip. us Roxanna Renteria MD IMG BI PROCEDURES Final Result * Cytology (09/13/2018 12:00 AM EDT) Thyroid fine needle aspirate specimen (specimen) 09/13/2018 09/13/2018 11:27 AM EDT Narrative SUNQUEST - 09/15/2018 11:36 AM EDT [facility] Department of Pathology/Cytology Room [address] MR #: [id number] HARVINDER GOULD 1965 (Age: 53) FW Collect Date: 09/13/2018 00:00 Receipt Date: 09/13/2018 11:27 Page 1 DEPARTMENT OF PATHOLOGY AND LABORATORY MEDICINE CYTOPATHOLOGY REPORT Email: [phone] ATTENDING MD/Practitioner: Hai Basilio MD Service: SSG Location: [facility]GS Reported: 09/15/2018 11:36 Collected: 09/13/2018 00:00 DIAGNOSIS THYROID, LEFT ISTHMUS (1.9CM), ULTRASOUND GUIDED FNA (SMEARS AND THINPREP): - NO EVIDENCE OF MALIGNANCY. - ABUNDANT COLLOID, GROUPS OF BENIGN APPEARING FOLLICULAR AND HURTHLE CELLS, AND MACROPHAGES. Electronically Signed Out Oneida Nuñez M.D. GROSS DESCRIPTION: 3 ml's of bloody needle rinse fluid processed as ThinPrep for complete evaluation of sample. CLINICAL INFORMATION: CLINICAL DIAGNOSIS 1.9 cm left isthmus nodule FNA performed by: Dr. Basilio Number of sticks: 2 Immediate evaluation performed by: Dr. Nuñez/PABLO Evaluation episode # 1-2: Adequate A pathologist has personally reviewed the slides/tissue and has rendered and is responsible for the diagnosis that appears on the report. SPECIMEN DESCRIPTION: A: LEFT ISTHMUS THYROID, ULTRASOUND GUIDED FNA DIFF-QUIK x 2, PAP STAIN x 2, THIN PREP PROCESS CELLULAR ENHANCEMENT ICD: E04.1 Nontoxic single thyroid nodule F: A; 77548 ASP INTER, 01235, 92733, 34968 SNOMED CODES: A; [id number] Loretta Basilio MD LAB PATHOLOGY ORDERABLES Final Result SUNQUEST from Last 3 Months or Most Recently Relevant to Health Maintenance Insurance ANTHEM Care Teams Toy Consultant Relationship Specialty Start Date End Date Will Vicente MD [address] [place] [address] PCP - General 09/04/21
[2025-07-24 13:57] LABS: C-Reactive Protein 1.3 mg/L (0-4)
[2025-07-25 12:44] LABS: RA Latex Turbid. 18.6 IU/mL (<14.0)
[2025-07-26 15:13] LABS: PTT-LA 44.2 sec (0.0-43.5); dRVVT Confirm 1.2 ratio (0.8-1.2)
== END 2025-07-24 23:59 | disposition home or self-care (01) ==
LOC: LAB 10:15
PROVIDERS: PCP Nurse Practitioner Family; Visit Provider Nurse Practitioner Family
DX: M25.50 Pain in unspecified joint (principal); R21 Rash and other nonspecific skin eruption
CPT/HCPCS: 36415; 85613; 85651; 86140; 86225; 86235; 86431